=== PATIENT | female | born 1995 | race Caucasian/White ===

== ENCOUNTER 2018-01-10 01:42 | Inpatient (IN) | payer OTHER ==
[~2018-01-10] VITALS: Ht 177.8 cm; Wt 56.9 kg
[2018-01-10] MEDS ORDERED: CLON0.5T PO (02:09)
[2018-01-10 03:57] LABS: HEMATOCRIT 41.1 % (36.0-48.0); MEAN CORPUSCULAR HEMOGLOBIN 29.8 pg (28.0-32.0); MEAN CORPUSCULAR VOLUME 87.7 fL (81.0-99.0); PLATELET 333 x1000/uL (130-400); RED BLOOD CELL COUNT 4.69 mill/uL (4.2-5.4); RED CELL DISTRIBUTION WIDTH 13.5 % (11.6-14.6)
[2018-01-10] MEDS ORDERED: KETOROLAC 30MG/ML VIAL IV ONE (04:00)
[2018-01-10] MEDS ORDERED: SODIUM CHLORIDE 0.9% 1,000 ML IV ONE (04:00)
[2018-01-10] MEDS ORDERED: LORAZEPAM 0.5MG TABLET PO ONE (04:00)
[2018-01-10 04:06] LABS: CHLORIDE 101 mEq/L (98-107)
[2018-01-10 04:29] LABS: ETHANOL BLOOD < 10 mg/dL
[2018-01-10 05:57] LABS: CLARITY URINE CLEAR (CLEAR); COLOR URINE YELLOW (YELLOW); KETONES URINE NEGATIVE (NEGATIVE); LEUKOCYTE ESTERASE URINE NEGATIVE (NEGATIVE); NITRITE URINE NEGATIVE (NEGATIVE); OCCULT BLOOD URINE 2+ (NEGATIVE); PH URINE 6.5 (4.5-8.0); PROTEIN URINE NEGATIVE (NEGATIVE); SPECIFIC GRAVITY URINE 1.008 (1.005-1.030); UROBILINOGEN URINE 0.2 E.U./dL (0.2-1.0)
[2018-01-10 06:48] LABS: *AMPHETAMINES SCREEN URINE NEGATIVE (NEGATIVE); *BARBITURATES SCREEN URINE NEGATIVE (NEGATIVE)
[2018-01-10 06:49] LABS: *COCAINE SCREEN URINE NEGATIVE (NEGATIVE); CANNABINOID URINE SCREEN NEGATIVE (NEGATIVE); METHADONE URINE SCREEN NEGATIVE (NEGATIVE); OPIATES URINE SCREEN NEGATIVE (NEGATIVE); PHENCYCLIDINE URINE SCREEN NEGATIVE (NEGATIVE)
[2018-01-10 07:12] LABS: *BENZODIAZEPINES SCREEN URINE PRESUMTIVE POSITIVE (NEGATIVE)
[2018-01-10] MEDS ORDERED: NA PHOS,M-B/NA PHOS,DI-BA ENEMA 118ML PR PRN (08:00)
[2018-01-10] MEDS ORDERED: MAGNESIUM/ALUMINUM HYDROXIDE/SIMETHICONE 30ML UDC PO PRN (08:00)
[2018-01-10] MEDS ORDERED: CLONIDINE 0.1MG TABLET PO PRN (08:00)
[2018-01-10] MEDS ORDERED: IPRATROPIUM/ALBUTEROL 0.5-3(2.5)MG/3ML NEB INH PRN (08:00)
[2018-01-10] MEDS ORDERED: DOCUSATE SODIUM 100MG CAPSULE PO PRN (08:00)
[2018-01-10] MEDS ORDERED: LORAZEPAM 2MG/ML CPJ IV PRN (08:00)
[2018-01-10] MEDS ORDERED: ONDANSETRON HCL 4MG/2ML INJ IV PRN (08:00)
[2018-01-10] MEDS ORDERED: NITROGLYCERIN 0.4MG TABLET SL SL PRN ×2 (08:00→09:00)
[2018-01-10] MEDS ORDERED: CHLORDIAZEPOXIDE 25MG CAPSULE PO SCH (09:00)
[2018-01-10] MEDS ORDERED: ONDANSETRON 4MG ODT PO PRN (09:00)
[2018-01-10] MEDS: KETOROLAC 15MG/ML VIAL IV PRN ×3 (09:47→21:58)
[2018-01-10] MEDS: FAMOTIDINE 20MG TABLET PO SCH ×2 (09:47→21:05)
[2018-01-10 09:59] VITALS: BP 106/51
[2018-01-10] MEDS: IPRATROPIUM/ALBUTEROL 0.5-3(2.5)MG/3ML NEB HHN SCH (12:00)
[2018-01-10] MEDS: CHLORDIAZEPOXIDE 5 MG CAPSULE PO SCH ×2 (15:54→21:05)
[2018-01-10 16:00] VITALS: BP 110/51
[2018-01-10] MEDS: CARBAMAZEPINE 200MG TABLET PO SCH (17:45)
[2018-01-10] MEDS: NICOTINE 7MG PATCH TD SCH (17:45)
[2018-01-10 20:00] VITALS: BP 105/60
[2018-01-11] VITALS: BP 106/62
[2018-01-11] MEDS: IPRATROPIUM/ALBUTEROL 0.5-3(2.5)MG/3ML NEB HHN SCH ×7 (01:50→20:39)
[2018-01-11 04:00] VITALS: BP 96/48
[2018-01-11] MEDS: CARBAMAZEPINE 200MG TABLET PO SCH ×2 (06:12→17:55)
[2018-01-11] MEDS: KETOROLAC 15MG/ML VIAL IV PRN (06:12)
[2018-01-11] MEDS: CHLORDIAZEPOXIDE 5 MG CAPSULE PO SCH ×2 (06:12→21:23)
[2018-01-11 08:00] VITALS: BP 119/65
[2018-01-11] MEDS: FAMOTIDINE 20MG TABLET PO SCH ×2 (09:28→21:23)
[2018-01-11] MEDS: NICOTINE 7MG PATCH TD SCH (09:28)
[2018-01-11] MEDS: ACETAMINOPHEN 325MG TABLET PO PRN ×2 (09:30→18:32)
[2018-01-11] MEDS ORDERED: NICOTINE 14MG PATCH TD SCH (11:30)
[2018-01-11 13:11] LABS: BASOPHILS % 0.4 % (0.0-2.0); EOSINOPHILS % 0.6 % (0.0-5.0); HEMATOCRIT. 36.1 % (36.0-48.0); HEMOGLOBIN. 12.4 g/dL (12.0-16.0); LYMPHOCYTES % 10.7 % (20.0-50.0); MEAN CORPUSCULAR HEMOGLOBIN 30.4 pg (28.0-32.0); MEAN CORPUSCULAR VOLUME 88.3 fL (81.0-99.0); MEAN PLATELET VOLUME 8.4 fl (7.4-10.4); MONOCYTES % 3.9 % (2.0-8.0); NEUTROPHILS % 84.4 % (40.0-76.0); PLATELET 224 x1000/uL (130-400); RED BLOOD CELL COUNT 4.08 mill/uL (4.2-5.4); RED CELL DISTRIBUTION WIDTH 13.7 % (11.6-14.6)
[2018-01-11 13:19] LABS: CHLORIDE 105 mEq/L (98-107)
[2018-01-11] MEDS ORDERED: CHLORDIAZEPOXIDE 5 MG CAPSULE PO SCH (14:00)
[2018-01-11 16:00] VITALS: BP 113/69
[2018-01-11 20:00] VITALS: BP 120/65
[2018-01-12] VITALS: BP 105/64
[2018-01-12] MEDS: IPRATROPIUM/ALBUTEROL 0.5-3(2.5)MG/3ML NEB HHN SCH ×2 (00:10→04:40)
[2018-01-12 02:02] VITALS: BP 120/65
[2018-01-12 04:00] VITALS: BP 110/59
[2018-01-12 08:25] VITALS: BP 109/69
[2018-01-12] MEDS: FAMOTIDINE 20MG TABLET PO SCH (08:40)
[2018-01-12] MEDS: CARBAMAZEPINE 200MG TABLET PO SCH (08:41)
[2018-01-12] MEDS: NICOTINE 7MG PATCH TD SCH (08:41)
[2018-01-12] MEDS: CHLORDIAZEPOXIDE 5 MG CAPSULE PO SCH (08:41)
[2018-01-12] MEDS: KETOROLAC 15MG/ML VIAL IV PRN (08:42)
[2018-01-12 12:06] VITALS: BP 115/68
[2018-01-17 06:19] LABS: 7-AMINOCLONAZEPAM CONFIRM Negative (.); ALPRAZOLAM CONFIRM 3.3 ng/mL (.); BARBITURATE SCREEN Negative ug/mL (Cutoff:0.1); BENZODIAZEPINE SCREEN ++POSITIVE++ ng/mL (Cutoff:20); CHLORDIAZEPOXIDE CONFIRM Negative (.); CLONAZEPAM CONFIRM Negative (.); DESMETHYLCHLORDIAZEPOXIDE Negative (.); DIAZEPAM CONFIRM Negative (.); FLURAZEPAM CONFIRM Negative (.); LORAZEPAM CONFIRM Negative (.); MIDAZOLAM CONFIRM Negative (.); OPIATES SCREEN Negative ng/mL (Cutoff:5); OXAZEPAM CONFIRM Negative (.); PHENCYCLIDINE SCREEN Negative ng/mL (Cutoff:8); TEMAZEPAM CONFIRM Negative (.); TRIAZOLAM CONFIRM Negative (.)
== END 2018-01-12 12:30 | disposition home or self-care (01) | DRG 101 ==
LOC: ER 01:42 → 5WST 05:30 → ENRESERV 07:24
PROVIDERS: ADMIT Internal Medicine; ATTEND Internal Medicine
DX: R56.9 Unspecified convulsions (principal); N39.0 Urinary tract infection, site not specified; F13.239 Sedative, hypnotic or anxiolytic dependence with withdrawal, unspecified; F32.9 Major depressive disorder, single episode, unspecified; F41.9 Anxiety disorder, unspecified; M79.7 Fibromyalgia; F17.210 Nicotine dependence, cigarettes, uncomplicated; Z79.899 Other long term (current) drug therapy; Z71.6 Tobacco abuse counseling; Z82.0 Family history of epilepsy and other diseases of the nervous system
CPT/HCPCS: 36415; 70450; 70551; 80053; 80305; 80307; 81003; 82962; 83036; 83735; 85025; 85027; 94640; 96361; 96374; 99285; G0482; J1885; J7030; J7620; Q0162